=== PATIENT | female | born 2005 | race Caucasian/White ===

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

== ENCOUNTER 2024-07-12 01:47 | Emergency (ER) | payer MEDICAID, SELFPAY ==
[2024-07-12 01:54] VITALS: BP 162/87; PULSE 120; RESP 16; TEMP 37.6; O2SAT 97
--- NOTE | 2024-07-12 02:00 | DI.RAD_ITS ---
Exam(s) XR ANKLE RT COMPLETE EXAM: XR ANKLE RT COMPLETE CLINICAL HISTORY: inversion injury, posterior lateral malleous TTP. TECHNIQUE: 2D digital imaging was performed of the right ankle. Three images were obtained. AP, la teral and oblique views were obtained. COMPARISON: CR RIGHT ANKLE COMPLETE from 11/01/2016 FINDINGS: BONES: No acute fracture is present. No bony destructive lesion is seen. JOINTS: The ankle mortise is normally aligned. SOFT TISSUE: Normal. IMPRESSION: Unremarkable radiographs of the right ankle. DATA REPOSITORY: RADIATION DOSE DELIVERED:
--- NOTE | 2024-07-12 02:15 | ED.GENADUL_ITS ---
Discharge Plan Disposition Patient Disposition: Home Condition: Good Discharge Details Clinical Impression: Inversion sprain of right ankle Primary Care Provider: Jimenez Xavier ED Provider: Lakesha Bellamy Home Meds and New Rx's Prescriptions: Continued cetirizine [Zyrtec] 10 mg tablet 10 mg PO DAILY quetiapine [Seroquel] 25 mg Tablet 150 mg PO HS Rx Instructions: 75 mg diphenhydramine HCl 25 mg Tablet 25 mg PO PRN PRN Rx Instructions: for anxiety Discharge Instructions Instructions: Ankle Sprain ED Additional Instructions: Call your primary care doctor in the morning to schedule an appointment to followup on your visit here. Return to the emergency department for new or worsening symptoms. Referrals: Jimenez Xavier PA [Primary Care Provider] - [facility] General Mode of arrival: ambulatory . Date/Time Provider Initiated Documentation: 07/12/24 01:56 . Limitations to Documentation: no limitations . Information obtained by: patient . HPI Narrative: 19yo previously health female presenting with right ankle injury. At around 2230 was 'horsing around' with her , had her right leg swept out from under her inverting her ankle in the process, and fell to the ground. Porter/heard a 'pop' when this happened. Has been very painful to bear weight and has been using crutches she had at home. Has not taken anything at home for pain. No numbness or tingling to ankle or foot. Denies pain or injury elsewhere; no HS or LOC. Otherwise in her usual state of health. Related Data Home Medications ?Medication ?Instructions ?Recorded ?Confirmed quetiapine 25 mg tablet (Seroquel) 150 mg PO HS 07/11/18 07/12/24 diphenhydramine HCl 25 mg tablet 25 mg PO PRN PRN 11/06/18 07/12/24 cetirizine 10 mg tablet (Zyrtec) 10 mg PO DAILY 12/28/19 07/12/24 Allergies Allergy/AdvReac Type Severity Reaction Status Date / Time latex Allergy Intermediate RASH Verified 07/12/24 01:59 silver (From Tegaderm AG Allergy Skin Rash Verified 07/12/24 01:59 Mesh) General Stated Complaint: Orthopedic YVONNE: 4 Review of Systems Narrative: see HPI Exam Narrative Exam Narrative: General: Alert, well appearing, well nourished, in no acute distress. Head: Normocephalic, atraumatic Neck: Trachea midline, ?Neck supple. Cardiac: ?No cyanosis. Resp: No respiratory distress. Speaking in full sentences. Abd: ?Non-distended Neurologic: GCS 15. ? Moves all extremities freely against gravity Extremities: Right ankle with mild swelling laterally. No skin changes. Pain with passive plantar & dorsiflexion, inversion, and eversion; worst with plantar&dorsiflexion. Posterior edge of lateral malleous mildly TTP; no other bony tenderness. Sensation to light touch intact throughout ankle & foot. Good DP and PT pulses. Course Vital Signs Vital signs: Vital Signs Temperature 37.6 C 07/12/24 01:54 Pulse 120 H 07/12/24 01:54 Respiratory Rate 16 07/12/24 01:54 Blood Pressure 162/87 H 07/12/24 01:54 Pulse Oximetry 97 07/12/24 01:54 Temperature 37.6 C 07/12/24 01:54 Temperature Source Temporal Artery Scan 07/12/24 01:54 Pulse 120 H 07/12/24 01:54 Respiratory Rate 16 07/12/24 01:54 Blood Pressure 162/87 H 07/12/24 01:54 Blood Pressure Position Sitting 07/12/24 01:54 Pulse Oximetry 97 07/12/24 01:54 Oxygen Delivery Method Room Air 07/12/24 01:54 Oxygen Flow Rate 0 07/12/24 01:54 Pain Level 9 07/12/24 01:54 Medical Decision Making 19yo previously health female presenting with right ankle inversion injury at around 2230. Painful to weight bear, has been using crutches. Hypertensive and tachycardiac on arrival after ambulating into triage on crutches (suspect 2/t pain); vital signs otherwise reassuring. Neurovascular intact on exam, some swelling to lateral right ankle and does have tenderness to posterior edge of lateral malleolus. Is able to bear weight. No pain or injury elsewhere; no indication for CT imaging or labs. Upreg negative. Given tylenol and toradol for pain. Plain film right ankle independently reviewed; no displaced fracture on my view, radiology read with no acute findings. On reassessment patient with normal vital signs, remains well appearing. Reports pain improved after medication. Advised symptomatic treatment at home; ankle wrapped with KRYSTAL bandage in the ED, pt already has crutches. Discharged home; discharge instructions and return precautions were reviewed with patient who verbalized understanding. All questions were answered and she is in full agreement with the plan. Imaging Data Radiologic Study: Imaging: X-Ray Radiologist's impression: IMPRESSION: No acute findings. Quality:SDOH Health Related Social Needs: No Data to Display PFSH All Active Problems (Updated 07/12/24 @ 04:29 by Lakesha Bellamy MD) Inversion sprain of right ankle (Acute) No-show for appointment (Acute) Viral respiratory illness (Acute) Patellar instability of right knee (Acute) Other instability, left shoulder (Acute) Medical History (Updated 07/12/24 @ 04:29 by Lakesha Bellamy MD) Depression Vision problem WEARS GLASSES Sleep apnea CPAP Surgical History skin tag removal R ear Family History Mother Substance abuse IN PAST Diabetes Essential hypertension Hyperlipidemia Mental disorder depression and bipolar Asthma Father Substance abuse Essential hypertension Heart disease Hyperlipidemia Mental disorder GRANDPARENT Essential hypertension Heart disease Hyperlipidemia Mental disorder Neoplasm Asthma Other Substance abuse Essential hypertension Heart disease Hyperlipidemia Mental disorder Neoplasm Asthma Social History Smoking/Tobacco Use Status: Former Tobacco Use Smoking risk assessment performed?: Yes Alcohol Intake: current Alcohol Intake frequency: holidays/special occasions only Drug use: Daily Substance use type: marijuana Current gender identity: female Do you feel safe at home: Yes Do you feel safe in your relationship?: Yes
[2024-07-12] MEDS: Ketorolac 15 MG/ML VIAL IM (02:37)
[2024-07-12] MEDS: Acetaminophen 500 MG TAB 1000 MG PO (02:37)
[2024-07-12 02:41] VITALS: PULSE 100; RESP 16; O2SAT 98
--- NOTE | 2024-07-12 04:13 | DI.VRAD_ITS ---
PROCEDURE INFORMATION: Exam: XR Right Ankle Exam date and time: 07/12/2024 2:27 AM Age: 19 years old Clinical indication: Pain; Ankle; Right; Inversion injury, posterior lateral malleous ttp TECHNIQUE: Imaging protocol: Radiologic exam of the right ankle. Views: 3 or more views. COMPARISON: No relevant prior studies available. FINDINGS: Bones/joints: Normal. Soft tissues: Normal. IMPRESSION: No acute findings. Dictated and Authenticated by: Adelso Valentin MD. Orderin Mia Crowder MD
[2024-07-12 04:33] VITALS: BP 108/60; PULSE 89; RESP 14; O2SAT 96
== END 2024-07-12 04:42 | disposition home or self-care (01) ==
PROVIDERS: Emergency Provider Student in an Organized Health Care Education/Training Program; PCP Physician Assistant Medical
DX: S93.401A Sprain of unspecified ligament of right ankle, initial encounter (principal); Z87.891 Personal history of nicotine dependence; X50.1XXA Overexertion from prolonged static or awkward postures, initial encounter; Y93.83 Activity, rough housing and horseplay; Y92.018 Other place in single-family (private) house as the place of occurrence of the external cause
CPT/HCPCS: 81025; 96372; 99284; 73610; J1885

== ENCOUNTER 2024-11-25 16:38 | Outpatient (REF) | payer MEDICAID, SELFPAY | END 2024-11-25 16:39 | disposition home or self-care (01) | LOC: LBN 16:38 | PROVIDERS: PCP Physician Assistant Medical; Visit Provider Registered Nurse | DX: J02.9 Acute pharyngitis, unspecified (principal) | CPT/HCPCS: 87070 ==

== ENCOUNTER 2025-02-27 12:56 | Outpatient (REF) | payer MEDICAID, SELFPAY ==
[2025-02-27 15:27] LABS: HCT 42.9 % (36.0-46.0); HGB 13.8 g/dL (11.2-15.7); MCH 27.5 pg (27.0-33.0); MCHC 32.2 % (32.0-36.0); MCV 86 fL (80-95); MPV 10.0 fL (8.0-11.0); Platelet Count 355 10^3/uL (130-400); RBC 5.02 10^6/uL (3.93-5.22); RDW 12.9 % (11.7-14.6); RDW-SD 40.3 fL; WBC 7.55 10^3/uL (4.4-10.8)
[2025-02-27 15:50] LABS: Hemoglobin A1C 6.2 % (<5.7)
[2025-02-27 16:37] LABS: ALT 35 U/L (14-59); AST 17 U/L (15-37); Albumin 4.1 g/dL (3.4-5.0); Alkaline Phosphatase 45 U/L (46-116); Anion Gap 10.6 mmol/L (3-11); BUN 10 mg/dL (7-18); Bilirubin, Total 0.2 mg/dL (0.2-1.0); CO2 25.4 mmol/L (21.0-32.0); Calcium 9.4 mg/dL (8.5-10.1); Calculated LDL 130 mg/dL (<100); Chloride 101 mmol/L (98-107); Cholesterol 179 mg/dL (<200); Estimated GFR 126.11 (mL/min/1.73m2); Glucose 122 mg/dL (74-106); HDL Cholesterol 37 mg/dL (>or=50); Potassium 4.3 mmol/L (3.5-5.1); Sodium 137 mmol/L (136-145); TSH (W/Ref FT4) 1.34 uIU/mL (0.36-3.74); Total Protein 8.4 g/dL (6.4-8.2); Triglyceride 60 mg/dL (<150)
[2025-02-28 10:10] LABS: HIV-1/2 Ag & Ab Screen Negative (Negative)
[2025-02-28 10:20] LABS: Hepatitis C Ab w Rflx HCV PCR Negative (Negative)
== END 2025-02-27 12:57 | disposition home or self-care (01) ==
LOC: NCHCN 12:56
PROVIDERS: PCP Physician Assistant Medical; Visit Provider Physician Assistant Medical
DX: Z86.39 Personal history of other endocrine, nutritional and metabolic disease (principal); E78.5 Hyperlipidemia, unspecified; Z87.898 Personal history of other specified conditions
CPT/HCPCS: 80053; 80061; 85027; 86803; 87389; 83036; 84443